=== PATIENT | male | born 1960 | race African-American/Black ===

== ENCOUNTER 2016-12-31 18:52 | Emergency (ER) | payer MEDICAID ==
[~2016-12-31] VITALS: Ht 172.7 cm; Wt 81.0 kg
[2016-12-31 18:55] VITALS: BP 140/93
== END 2016-12-31 22:15 | disposition left against medical advice (07) ==
LOC: ER 18:53
DX: R51 Headache (principal); Z53.21 Procedure and treatment not carried out due to patient leaving prior to being seen by health care provider